=== PATIENT | female | born 1995 | race Caucasian/White ===

== ENCOUNTER 2016-07-30 09:54 | Inpatient (IN) | payer MEDICAID, OTHER ==
[~2016-07-30] VITALS: Ht 160 cm; Wt 74.6 kg
[2016-07-30 10:05] VITALS: Ht 160 cm; Wt 74.6 kg
[2016-07-30 10:06] VITALS: BP 134/76; PULSE 109
[2016-07-30] MEDS ORDERED: PRENAT PO (10:07)
[2016-07-30] MEDS ORDERED: LACTATED RINGER'S 1,000 ML IV PRN (10:30)
[2016-07-30] MEDS ORDERED: METHYLERGONOVINE 0.2 MG INJ IM PRN (10:30)
[2016-07-30] MEDS ORDERED: MISOPROSTOL 200 MCG TAB PR PRN (10:30)
[2016-07-30] MEDS ORDERED: OXYTOCIN 30 UNITS/LR 500 ML IV PRN (10:30)
[2016-07-30] MEDS ORDERED: OXYTOCIN 30 UNITS/LR 500 ML IV SCH ×2 (10:30)
[2016-07-30] MEDS ORDERED: CARBOPROST 250 MCG INJ IM PRN (10:30)
[2016-07-30 11:38] LABS: ADD SCAN DIFF NO
[2016-07-30 11:45] LABS: BASOPHIL # 0.1 10^3/ul (0.0-0.1); BASOPHILS % 0.4 % (0.0-2.0); EOSINOPHILS # 0.1 10^3/ul (0.0-0.5); EOSINOPHILS % 0.4 % (0.0-7.0); HEMATOCRIT 39.1 % (37.0-47.0); HEMOGLOBIN 13.4 g/dl (12.0-16.0); LYMPHOCYTES # 1.6 10^3/ul (0.8-2.9); MEAN CORPUSCULAR HEMOGLOBIN 31.4 pg (29.0-33.0); MEAN CORPUSCULAR HGB CONC 34.3 g/dl (32.0-37.0); MEAN CORPUSCULAR VOLUME 91.6 fl (82.0-101.0); MEAN PLATELET VOLUME 10.9 fl (7.4-10.4); MONOCYTE # 0.9 10^3/ul (0.3-0.9); NEUTROPHIL # 12.9 10^3/ul (1.6-7.5); NEUTROPHILS % 82.3 % (39.0-77.0); PLATELET COUNT 190 10^3/UL (140-415); RED BLOOD COUNT 4.27 10^6/ul (4.20-5.40); RED CELL DISTRIBUTION WIDTH 13.1 % (11.5-14.5); WHITE BLOOD COUNT 15.6 10^3/ul (4.8-10.8)
[2016-07-30] MEDS: LACTATED RINGER'S 1,000 ML IV SCH ×2 (11:50→18:33)
[2016-07-30 11:59] LABS: INR 0.91; PROTIME 12.3 Sec (12.2-14.2)
[2016-07-30 12:00] LABS: PARTIAL THROMBOPLASTIN TIME 29.8 Sec (25.0-35.0)
[2016-07-30] MEDS ORDERED: ONDANSETRON 4 MG INJ IV PRN (15:30)
[2016-07-30] MEDS ORDERED: NALOXONE (0.4 MG/ML) INJ IV PRN (15:30)
[2016-07-30] MEDS ORDERED: EPHEDrine SULFATE 50 MG/5 ML SYG IV PRN (15:30)
[2016-07-30] MEDS ORDERED: FENTAnyl 2MCG/ML-ROPIV 0.2% 100 ML BAG EPI SCH (15:30)
[2016-07-31] VITALS (7 sets, daily range): BP systolic 104–121; BP diastolic 58–89; PULSE 79–106; RESP 16–20
[2016-07-31] MEDS: LIDOCAINE 1% (MPF) 30 ML INJ INJ PRN ×2 (01:05→03:01)
--- NOTE | 2016-07-31 01:24 | LDN ---
Date/Time of Note Date/Time of Note DATE: 07/31/16 TIME: 01:23 Delivery Summary 39+wks Placenta Delivered: Spontaneously Meconium: none Episiotomy: No Perineal laceration: 2 Anesthesia type: Local Estimated blood loss: 300 Sponge & Needle done & correct: Yes All needle counts correct: Yes Any foreign bodies felt in the: No Problems: Infant Delivery Information Apgars 1 Minute: 8 5 Minute: 9 Suctioning Nose & mouth suctioned at sandrine: Yes Delee suction performed: Yes Umbilical Cord Umbilical cord with: 3 Vessels Cord presentations: no nuchal cord Cord Blood was obtained: Yes Mother & Baby Disposition Disposition Mom & Baby to Maternity; Good: Yes HEMALATHA MIRANDA M.D. July 31, 2016 01:24
--- NOTE | 2016-07-31 01:44 | HP ---
Date/Time of Note Date/Time of Note DATE: 07/31/16 TIME: 01:42 OB - History Hx of Present Chief Complaint: contractions Estimated Due Date: August 06, 2016 : 1 Para: 0 Spontaneous : 0 Therapeutic : 0 Care: Good Care Ultrasounds: Normal mid trimester US Obstetrical Complications: None Medical Complications: None Past Family/Social History * Past Medical, Surgical, Family and Obstetric Histories reviewed from chart. GBS Status: Negative OB Admission Exam Vital Signs Vital Signs Vital Signs Date Time Temp Pulse Resp B/P Pulse Ox O2 Delivery O2 Flow Rate FiO2 07/30/16 10:06 98.2 109 134/76 Physical Exam HEENT: WNL Heart: Rhythm Normal Lungs: Clear Abdomen: WNL Extremities: Normal Cervical Dilatation: 5cm Effacement: 75% Station: -1 Membranes: Intact Heart Rate: 140's Accelerations: Accelerations Present Decelerations: No Decelerations Varibility: Moderate Last 72 hours Lab Results CBC & BMP 07/30/16 11:05 OB Assessment/Plan Reason for admission: active labor Plan: Expectant Management ASHLEY CASANOVA MD July 31, 2016 01:44
[2016-07-31] MEDS ORDERED: LACTATED RINGER'S 1,000 ML IV* SCH (03:02)
[2016-07-31] MEDS ORDERED: ACETAMINOPHEN 325 MG TAB PO PRN (03:30)
[2016-07-31] MEDS ORDERED: WITCH HAZEL/GLYCERIN PAD PR PRN (03:30)
[2016-07-31] MEDS ORDERED: LANOLIN 7 GM TUBE TOP PRN (03:30)
[2016-07-31] MEDS ORDERED: METHYLERGONOVINE 0.2 MG INJ IM PRN ×2 (03:30)
[2016-07-31] MEDS ORDERED: SENNA/DOCUSATE NA (8.6MG/50MG) TAB PO PRN (03:30)
[2016-07-31] MEDS ORDERED: ACETAMINOPHEN/CODEINE #3 TAB PO PRN (03:30)
[2016-07-31] MEDS ORDERED: DIPHENHYDRAMINE 25 MG CAP PO PRN (03:30)
[2016-07-31] MEDS ORDERED: CARBOPROST 250 MCG INJ IM PRN ×2 (03:30)
[2016-07-31] MEDS ORDERED: BENZOCAINE 20% 56 ML SPRAY TOP PRN (03:30)
[2016-07-31] MEDS ORDERED: MISOPROSTOL 200 MCG TAB PR PRN ×2 (03:30)
[2016-07-31] MEDS ORDERED: OXYTOCIN 30 UNITS/LR 500 ML IV PRN ×2 (03:30)
[2016-07-31] MEDS ORDERED: OXYCODONE/ASPIRIN (4.88/325) TAB PO PRN (03:30)
[2016-07-31] MEDS ORDERED: DIBUCAINE 1% 30 GM OINT PR PRN (03:30)
[2016-07-31] MEDS: LACTATED RINGER'S 1,000 ML IV* SCH ×3 (05:07→19:02)
[2016-07-31] MEDS: IBUPROFEN 600 MG TAB PO SCH ×4 (05:51→23:31)
[2016-07-31] MEDS ORDERED: IBUPROFEN 600 MG TAB PO SCH (06:00)
[2016-07-31 07:59] LABS: ABNORMAL IP MESSAGE 1; ADD SCAN DIFF NO; HEMATOCRIT 34.3 % (37.0-47.0); HEMOGLOBIN 11.8 g/dl (12.0-16.0); MEAN CORPUSCULAR HEMOGLOBIN 31.6 pg (29.0-33.0); MEAN CORPUSCULAR HGB CONC 34.4 g/dl (32.0-37.0); MEAN PLATELET VOLUME 11.4 fl (7.4-10.4); PLATELET COUNT 180 10^3/UL (140-415); RED BLOOD COUNT 3.73 10^6/ul (4.20-5.40); RED CELL DISTRIBUTION WIDTH 13.2 % (11.5-14.5); WHITE BLOOD COUNT 27.3 10^3/ul (4.8-10.8)
[2016-07-31] MEDS ORDERED: SENNA/DOCUSATE NA (8.6MG/50MG) TAB PO SCH (09:00)
[2016-07-31] MEDS: SENNA/DOCUSATE NA (8.6MG/50MG) TAB PO SCH ×2 (10:49→20:44)
[2016-07-31 11:31] LABS: LYMPHOCYTES # 1.1 10^3/ul (0.8-2.9); MONOCYTE # 1.1 10^3/ul (0.3-0.9); NEUTROPHIL # 25.1 10^3/ul (1.6-7.5)
[2016-08-01] VITALS: BP 126/91; PULSE 91; RESP 20
[2016-08-01 04:00] VITALS: BP 113/61; PULSE 92; RESP 18
[2016-08-01] MEDS: IBUPROFEN 600 MG TAB PO SCH ×4 (06:00→23:44)
[2016-08-01 07:27] LABS: ADD SCAN DIFF NO
[2016-08-01 07:30] VITALS: BP 101/68; PULSE 88; RESP 18
[2016-08-01 07:43] LABS: BASOPHIL # 0.1 10^3/ul (0.0-0.1); BASOPHILS % 0.3 % (0.0-2.0); EOSINOPHILS # 0.1 10^3/ul (0.0-0.5); EOSINOPHILS % 0.6 % (0.0-7.0); HEMATOCRIT 35.2 % (37.0-47.0); HEMOGLOBIN 11.7 g/dl (12.0-16.0); LYMPHOCYTES # 2.9 10^3/ul (0.8-2.9); LYMPHOCYTES % 12.7 % (15.0-51.0); MEAN CORPUSCULAR HEMOGLOBIN 31.4 pg (29.0-33.0); MEAN CORPUSCULAR HGB CONC 33.2 g/dl (32.0-37.0); MEAN CORPUSCULAR VOLUME 94.4 fl (82.0-101.0); MEAN PLATELET VOLUME 11.3 fl (7.4-10.4); MONOCYTE # 1.5 10^3/ul (0.3-0.9); MONOCYTES % 6.6 % (0.0-11.0); NEUTROPHIL # 17.8 10^3/ul (1.6-7.5); NEUTROPHILS % 78.9 % (39.0-77.0); PLATELET COUNT 172 10^3/UL (140-415); RED BLOOD COUNT 3.73 10^6/ul (4.20-5.40); RED CELL DISTRIBUTION WIDTH 13.6 % (11.5-14.5); WHITE BLOOD COUNT 22.6 10^3/ul (4.8-10.8)
[2016-08-01] MEDS: SENNA/DOCUSATE NA (8.6MG/50MG) TAB PO SCH ×2 (09:29→20:17)
[2016-08-01] MEDS: CEPHALEXIN 500 MG CAP PO SCH ×3 (12:57→23:44)
[2016-08-01 16:00] VITALS: BP 110/62; PULSE 90; RESP 18
--- NOTE | 2016-08-01 18:40 | QN ---
Documentation Comment No complaint Afebrile VSS Fundus Firm Lochia scant PPD #1 Stable Continue with present care. ASHLEY CASANOVA MD August 01, 2016 18:40
[2016-08-01 20:32] VITALS: BP 111/58; PULSE 94; RESP 18
[2016-08-02 04:08] VITALS: BP 109/57; PULSE 87; RESP 18
[2016-08-02] MEDS: CEPHALEXIN 500 MG CAP PO SCH ×3 (05:42→18:23)
[2016-08-02] MEDS: IBUPROFEN 600 MG TAB PO SCH ×3 (05:43→18:23)
[2016-08-02 08:19] LABS: ADD SCAN DIFF NO
[2016-08-02 08:26] LABS: BASOPHILS % 0.3 % (0.0-2.0); EOSINOPHILS # 0.3 10^3/ul (0.0-0.5); EOSINOPHILS % 2.1 % (0.0-7.0); HEMATOCRIT 29.2 % (37.0-47.0); HEMOGLOBIN 9.8 g/dl (12.0-16.0); LYMPHOCYTES # 2.2 10^3/ul (0.8-2.9); LYMPHOCYTES % 17.1 % (15.0-51.0); MEAN CORPUSCULAR HEMOGLOBIN 31.7 pg (29.0-33.0); MEAN CORPUSCULAR HGB CONC 33.6 g/dl (32.0-37.0); MEAN CORPUSCULAR VOLUME 94.5 fl (82.0-101.0); MONOCYTE # 0.8 10^3/ul (0.3-0.9); MONOCYTES % 5.9 % (0.0-11.0); NEUTROPHIL # 9.7 10^3/ul (1.6-7.5); NEUTROPHILS % 74.1 % (39.0-77.0); PLATELET COUNT 163 10^3/UL (140-415); RED BLOOD COUNT 3.09 10^6/ul (4.20-5.40); RED CELL DISTRIBUTION WIDTH 13.5 % (11.5-14.5); WHITE BLOOD COUNT 13.1 10^3/ul (4.8-10.8)
[2016-08-02 08:30] VITALS: BP 113/56; PULSE 88; RESP 16
[2016-08-02] MEDS: SENNA/DOCUSATE NA (8.6MG/50MG) TAB PO SCH (08:35)
[2016-08-02] MEDS ORDERED: DIPHTH/TET/ACEL PERTUSS (ADULT) 0.5 ML VIAL IM* ONE ×2 (09:00)
[2016-08-02 15:50] VITALS: BP 100/57; PULSE 93; RESP 16
--- NOTE | 2016-08-02 19:03 | DS ---
Date/Time of Note Date/Time of Note DATE: 08/02/16 TIME: 19:02 Obstetrical Discharge Record Final Diagnosis Final Diagnosis: Term delivered Vaginal Delivery Obstetrical Delivery: Spontaneous Condition on Discharge Physical Assessment Voiding: Yes Bowel Movement: Yes Breast: Soft, non-tender Fundus: Firm Calf Tenderness: No Patient Condition: Stable ASHLEY CASANOVA MD August 02, 2016 19:03
== END 2016-08-02 20:15 | disposition home or self-care (01) | DRG 775 ==
LOC: OBT 09:54 → EDSEX 09:54 → L-D 09:55 → OBT 10:28 → L-D 10:34 → PP1 07-31 02:55
PROVIDERS: ADMIT Obstetrics & Gynecology; ATTEND Obstetrics & Gynecology
PROC: 10E0XZZ Delivery of Products of Conception, External Approach (ICD-10-PCS; principal; 2016-07-31)
PROC: 0KQM0ZZ Repair Perineum Muscle, Open Approach (ICD-10-PCS; 2016-07-31)
DX: O70.1 Second degree perineal laceration during delivery (principal); Z37.0 Single live birth; Z3A.39 39 weeks gestation of pregnancy
CPT/HCPCS: 62319; 85025; 85610; 85730; 86592; 86900; 86901; 87086; 87340; 90715; G0463; J2590; J3010; J7120